=== PATIENT | female | born 1960 | race African-American/Black ===

== ENCOUNTER 2016-10-19 18:54 | Emergency (ER) | payer MEDICAID ==
[~2016-10-19] VITALS: Ht 165.1 cm; Wt 85.0 kg
[~2016-10-19 18:54] MED LIST: CLON.2 PO; FURO10S PO; GABA300C3 PO; GLIP5 PO; HYDR100T2 PO; ISOS20TA38 PO; METF-324 PO; POTA20IN3 PO
[2016-10-19 18:56] VITALS: BP 204/91; PULSE 68; RESP 20; TEMP 99.1; O2SAT 100
[2016-10-19 19:13] VITALS: BP 177/87; PULSE 69; RESP 16
[2016-10-19] MEDS ORDERED: DICL50TA3 PO (19:22)
--- NOTE | 2016-10-19 19:25 | PD ---
HPI Chief Complaint: Injury Time Seen by Provider: 19:22 Travel History International Travel<30 days: No Contact w/Intl Traveler<30days: No Traveled to known affect area: No History of Present Illness HPI 56-year-old [id number] black female presents to emergency Department with complaints of right wrist pain and swelling. She states that approximately 30 minutes prior to arrival she accidentally struck her right wrist on a hard piece of furniture. She merely had pain, swelling and tingling just distal to the injury. Pain is mild to moderate. Exacerbated by palpation and movement. Some relief with remaining still. No other injury. PFSH Past Medical History Arthritis: No Asthma: No Autoimmune Disease: No Blood Disorders: No Anxiety: Yes Depression: Yes Heart Rhythm Problems: Yes (HEART MURMUR) Cancer: Yes (COLON ) Cardiovascular Problems: Yes (htn) High Cholesterol: Yes Chemotherapy: Yes (2002) Chest Pain: No Congestive Heart Failure: Yes COPD: No Cerebrovascular Accident: No Diabetes: Yes Patient Takes Glucophage: No Diminished Hearing: No Endocrine: Yes Gastrointestinal Disorders: Yes (ca 2002 resection followed by chemo) GERD: Yes Glaucoma: No Genitourinary: Yes (RECENT UTI) Headaches: Yes (when bp up) Hepatitis: No Hiatal Hernia: No Heparin Induced Thrombocytopen: No Hypertension: Yes Immune Disorder: Yes Implanted Vascular Access Dvce: Yes Kidney Stones: No Medical other: No Musculoskeletal: Yes Neurologic: Yes Psychiatric: Yes Reproductive: No Respiratory: Yes (HX: BRONCHITIS) Immunizations Current: Yes Migraines: No Myocardial Infarction: No Radiation Therapy: Yes Renal Failure: No Seizures: No Sickle Cell Disease: No Sleep Apnea: No Thyroid Disease: Yes (HYPOTHYROIDISM) Ulcer: No Tetanus Vaccination: > 5 Years Influenza Vaccination: Yes PNEUMOCCOCAL Vaccine (Year): 3 Menopausal: Yes Past Surgical History Abdominal Surgery: Yes (BOWEL RESECTION 2002 ca) AICD: No Appendectomy: No Arteriovenous Shunt: No Body Medical Devices: 3 screws in neck Cardiac Surgery: No Cholecystectomy: No Ear Surgery: No Endocrine Surgery: No Eye Surgery: No Genitourinary Surgery: Yes Gynecologic Surgery: No Insulin Pump: No Joint Replacement: No Neurologic Surgery: Yes (neck surgery) Oral Surgery: Yes (ALL UPPER TEETH REMOVED) Pacemaker: No Thoracic Surgery: No Other Surgery: Yes (COLON RESECTION S/P COLON CA) Social History Alcohol Use: No Tobacco Use: Yes (1 PPD) Substance Use: Yes (marijuana few days ago) Allergies-Medications (Allergen,Severity, Reaction): Coded Allergies: Penicillin (Verified Allergy, Severe, Hives, 10/19/16) Reported Meds & Prescriptions Reported Meds & Active Scripts Active Catapres 0.2 mg (Clonidine HCl) 0.2 Mg Tab 1 Tab PO TID 30 Days Hydralazine HCl 100 Mg Tab 100 Mg PO Q8 30 Days Catapres 0.2 mg (Clonidine HCl) 0.2 Mg Tab 1 Tab PO TID Reported Hydralazine HCl 100 Mg Tab 100 Mg PO Q8 Isosorbide Mononitrate 20 Mg Tab 60 Mg PO DAILY Furosemide 10 Mg/Ml Brenna 20 Mg PO DAILY Potassium Chloride 20 Meq Pow 10 Meq PO DAILY Metformin ER 24 HR (Metformin HCl) 1,000 Mg Tab 1,000 Mg PO BIDPC Gabapentin 300 Mg Cap 300 Mg PO DAILY Glipizide 5 Mg Tab 5 Mg PO BID Review of Systems Except as stated in HPI: all other systems reviewed are Neg Physical Exam Narrative GENERAL: This is a well-nourished, well-developed patient, in no apparent distress. SKIN: No rashes, ecchymoses or lesions. Warm and dry. Slight abrasion over the dorsal distal right forearm HEAD: Atraumatic. Normocephalic. EYES: PERRL, EOMI, no discharge or injection. No scleral icterus. EARS: Clear NOSE: Nasal turbinates appear normal. THROAT: Mucosa pink and moist. Airway patent. NECK: Trachea midline. supple, moves head freely. LUNGS: Clear to auscultation. CV: Regular in rhythm. ABDOMEN: Soft nontender. EXT: No clubbing cyanosis. Examination of the right upper extremity reveals an area of tenderness, swelling and a slight abrasion over the dorsal radial distal forearm. There is a hematoma measuring approximately 3 x 3 cm. In the patient complains of hypoesthesia just distal to the area on the dorsal skin of the mikael. Patient is able to extend and flex her fingers freely. She has a good hvac project manager. Median/ulnar/renal nerves intact. Data Data Last Documented VS Vital Signs Date Time Temp Pulse Resp B/P Pulse Ox O2 Delivery O2 Flow Rate FiO2 10/19/16 19:13 69 16 177/87 Room Air 10/19/16 18:56 99.1 100 Orders Ice/Cold Pack (10/19/16 19:20) Splint Or Brace Apply/Monitor (10/19/16 19:20) Acetamin-Hydrocod 325-5 Mg ([place] 5-325 (10/19/16 19:30) Ibuprofen (Motrin) (10/19/16 19:30) MDM Medical Decision Making Medical Screen Exam Complete: Yes Emergency Medical Condition: Yes Medical Record Reviewed: Yes Differential Diagnosis MDM: High Differential diagnoses: Fracture, sprain, strain, dislocation, contusion, neurovascular injury Narrative Course Patient has a soft tissue contusion/hematoma with neurapraxia. She is given ice pack, Lortab 5, Motrin 600 mg and an ice pack. Landon wrap applied. This is right wrist hematoma, contusion Diagnosis Primary Impression: Traumatic hematoma of right wrist Additional Impression: Contusion of wrist, right Patient Instructions: General Instructions Additional Instructions: Rest. Ice for the next 3 days followed by heat . Voltaren. Landon wrap. Follow-up with a primary care doctor in one week. Return to the ER for emergencies. Med/Other Pt SpecificInfo: Prescription(s) given Scripts Diclofenac Sodium DR 50 Mg Tabdr50 Mg PO TID #21 TAB Prov:London Dyer MD 10/19/16 Disposition: 01 DISCHARGE HOME Condition: Stable Timmy Guerrero October 19, 2016 19:25
[2016-10-19] MEDS ORDERED: IBUPROFEN 600 MG TAB PO ONE (19:30)
[2016-10-19] MEDS ORDERED: ACETAMINOPHEN/HYDROcodone 325 MG/5 MG TAB PO ONE (19:30)
== END 2016-10-19 19:40 | disposition home or self-care (01) ==
LOC: NEPK 18:54
DX: S60.211A Contusion of right wrist, initial encounter (principal); I10 Essential (primary) hypertension; E11.9 Type 2 diabetes mellitus without complications; E03.9 Hypothyroidism, unspecified; W22.03XA Walked into furniture, initial encounter; Y92.009 Unspecified place in unspecified non-institutional (private) residence as the place of occurrence of the external cause; I50.9 Heart failure, unspecified; F17.210 Nicotine dependence, cigarettes, uncomplicated; F12.90 Cannabis use, unspecified, uncomplicated
CPT/HCPCS: 99283